=== PATIENT | female | born 1955 | race Hispanic/Latino ===

== ENCOUNTER 2016-06-20 21:22 | Inpatient (IN) | payer MEDICAID ==
[2016-06-20] MEDS ORDERED: DULCOLAX PR PRN (22:32)
[2016-06-20] MEDS: NORCO 10/325 PO PRN (23:35)
[2016-06-21] MEDS: NORCO 10/325 PO PRN ×2 (04:55→09:23)
[2016-06-21 05:47] LABS: Alanine Aminotransferase 10 units/L (7-56); Albumin 3.4 g/dL (3.9-5); Alkaline Phosphatase 128 units/L (35-129); Anion Gap 19 mmol/L; Bilirubin,Total 0.5 mg/dL (0.1-1.2); Blood Urea Nitrogen 16 mg/dL (7-17); Calcium 8.9 mg/dL (8.4-10.2); Carbon Dioxide 25 mmol/L (22-30); Chloride 93.8 mmol/L (98-107); Glucose 99 mg/dL (65-100); Potassium 4.4 mmol/L (3.6-5.0); Sodium 133 mmol/L (137-145); Total Protein 6.9 g/dL (6.3-8.2)
[2016-06-21 05:55] LABS: Basophils % (Auto) 0.7 % (0.0-1.8); Eosinophils % (Auto) 4.7 % (0.0-4.3); Hematocrit 25.6 % (30.3-42.9); Hemoglobin 8.6 gm/dl (10.1-14.3); Mean Corpuscular HGB Conc 34 % (30-34); Mean Corpuscular Hemoglobin 34 pg (28-32); Mean Corpuscular Volume 100 fl (79-97); Platelet Count 196 K/mm3 (140-440); Red Blood Count 2.56 M/mm3 (3.65-5.03); Red Cell Distribution Width 13.6 % (13.2-15.2); White Blood Count 5.1 K/mm3 (4.5-11.0)
[2016-06-21] MEDS: VITAMIN D3 PO SCH (09:16)
[2016-06-21] MEDS: RisperDAL PO SCH (09:17)
[2016-06-21] MEDS: HABITROL TD SCH ×2 (09:17→10:39)
[2016-06-21] MEDS: CYMBALTA PO SCH (09:17)
[2016-06-21] MEDS: LOVENOX SUB-Q SCH (09:18)
[2016-06-21] MEDS: BABY ASPIRIN PO SCH (10:40)
--- NOTE | 2016-06-21 12:12 | History and Physical Report ---
History of Present Illness Date: 06/21/16 Referring Facility: [facility] Date of admission: 06/20/16 21:22 Chief Complaint: right femoral neck fracture History of present illness: POST ADMISSION PHYSICIAN EVALUATION ONSET DATE: 06/10/2016 IMPAIRMENT GROUP CODE: 08.11 ETIOLOGIC DIAGNOSIS: right femoral fracture STATUS CHANGES SINCE PREADMISSION SCREENING: PAS has been reviewed. In comparison, pt with increase lethargy this afternoon. Pt with home meds in room and initially refused to allow for meds to be taken to pharmacy. Pt later reported having additional medications in her pocket and refused to give to myself or staff. Unclear what medications she may have; pt refuses to state what medications these are. She was alert and able to participate with therapies earlier this morning, however, very drowsy when seen by me. Therefore , Bradford discontinued to prevent possible respiratory distress; urine drug screen ordered. Roommate and sister to be notified. Pt noted to have functional deficits that warrant ongoing IRU admission, however, pt will be required to adhere to policies of no outside and unprescribed medications during admission. PREVIOUS FUNCTIONAL STATUS: Independent with ADLs, gait, transfers CURRENT FUNCTIONAL STATUS: S/U to maxA for ADLs; modA for transfers; ambulated 22 feet with HW HPI 60 y.o. female who presented to [facility] ED following a fall; noted to have a right intertrochanteric femur fracture, distal humerus fracture with displacement/dislocation of fracture fragments; also with acute on chronic renal failure and hypokalemia on admission. Course complicated by acute blood loss anemia requiring transfusion. Pt is s/p ORIF on 06/13/16 to [facility]; s/p IM rodding to RLE on 06/12/2016. Pt is now admitted for aggressive therapies and ongoing medical management. Past History Past Medical History: anemia (macrocytic; anemia of chronic disease), CAD ( angina), COPD, heart failure, hypertension, renal failure, other (asthma, schizophrenia) Past Surgical History: cholecystectomy, hernia repair, Other (tubal ligation; lumbar surgery) Social history: smoking, other (lives with roommate) Family history: no significant family history Medications and Allergies Allergies Allergy/AdvReac Type Severity Reaction Status Date / Time cephalexin monohydrate Allergy Rash Verified 06/12/15 02:43 [From Keflex] codeine Allergy Rash Verified 06/12/15 02:43 ibuprofen Allergy Rash Verified 06/12/15 02:43 ketorolac tromethamine Allergy Hives Verified 06/21/16 03:00 [From Toradol] Penicillins Allergy Rash Verified 06/12/15 02:43 Sulfa (Sulfonamide Allergy Rash Verified 06/12/15 02:43 Antibiotics) tramadol Allergy Rash Verified 06/12/15 02:43 tramadol HCl [From Ultram] Allergy Rash Verified 06/12/15 02:43 Home Medications Medication Instructions Recorded Confirmed Last Taken Type HYDROcodone/APAP 5-325 [[place] 1 each PO Q6HR PRN #15 tablet 02/15/14 Unknown Rx 5/325] Azithromycin [Zithromax Z-TANVI] 250 mg PO DAILY #6 tab 06/12/15 Unknown Rx traMADol [Ultram 50 MG tab] 50 mg PO TID #15 tablet 06/12/15 Unknown Rx Aspirin [Aspirin BABY CHEW TAB] 81 mg PO QDAY 06/21/16 06/21/16 06/12/16 08:55 History 81mg AtorvaSTATin [Lipitor] 80 mg PO QHS 06/21/16 06/21/16 06/19/16 21:24 History 80mg Cholecalciferol Vit D3 [Vitamin D3] 5,000 unit PO QDAY 06/21/16 06/21/16 08:37 History 5,000units Duloxetine HCl [DULoxetine] 60 mg PO DAILY 06/21/16 06/21/16 06/19/16 21:24 History 60mg HYDROcodone/APAP 10-325 [[place] 1 each PO Q4HR PRN 06/21/16 06/21/16 06/20/16 13: 19 History 10/325] 1 tablet Lisinopril [Zestril TAB] 2.5 mg PO HS 06/21/16 06/21/16 06/19/16 21:24 History Nicotine [Habitrol] 21 mg TD DAILY 06/21/16 06/21/16 06/14/16 15:42 History 1 patch Polyethylene Glycol 3350 [Purelax] 17 gm PO DAILY 06/21/16 06/21/16 Unknown History risperiDONE [RisperiDONE] 3 mg PO QDAY 06/21/16 06/21/16 06/11/16 09:28 History 1mg Active Meds: Active Medications Acetaminophen (Tylenol) 650 mg PO Q4H PRN PRN Reason: Pain MILD(1-3)/Fever >100.5/VALDEZ Aspirin (Baby Aspirin) 81 mg PO QDAY [facility] Last Admin: 06/21/16 10:40 Dose: Not Given Atorvastatin Calcium (Lipitor) 80 mg PO QHS [facility] Bisacodyl (Dulcolax) 10 mg [place] QDAY PRN PRN Reason: Constipation unrelieved by MOM Cholecalciferol (Vitamin D3) 5,000 unit PO QDAY [facility] Last Admin: 06/21/16 09:16 Dose: 5,000 unit Duloxetine HCl (Cymbalta) 60 mg PO QDAY [facility] Last Admin: 06/21/16 09:17 Dose: 60 mg Enoxaparin Sodium (Lovenox) 40 mg SUB-Q QDAY [facility] Last Admin: 06/21/16 09:18 Dose: 40 mg Lisinopril (Zestril) 2.5 mg PO QPM [facility] Nicotine (Habitrol) 21 mg TD QDAY [facility] Last Admin: 06/21/16 10:39 Dose: Not Given Risperidone (Risperdal) 3 mg PO QDAY [facility] Last Admin: 06/21/16 09:17 Dose: 3 mg Review of Systems ROS unobtainable: due to mental status (lethargic and refused to answer most questions) Constitutional: lethargy Respiratory: no cough Gastrointestinal: no nausea, no vomiting Musculoskeletal: gait dysfunction, other (pain at right arm and hip) Exam - Constitutional Vitals: Vital Signs - 12hr 06/21/16 06/21/16 06/21/16 00:35 05:55 09:23 Respiratory 18 18 20 Rate - EENT ENT: hearing intact - Neck Neck: supple, normal ROM - Respiratory Respiratory effort: normal Respiratory: bilateral: CTA - Cardiovascular Rhythm: regular Heart Sounds: Present: S1 & S2 - Extremities Extremity abnormal: edema (right hip), other (chalo in place to right lateral hip; no drainage; sling and splint to RUE) - Gastrointestinal General gastrointestinal: Present: soft, non-tender, non-distended, normal bowel sounds - Musculoskeletal Musculoskeletal: right sided weakness (RUE ROM deferred; intact ankle DF/PF) - Neurologic Neurologic: other (sensation grossly intact) - Psychiatric Psychiatric: other (lethargic, however, opens eyes intermittently to name) - Allied health notes FIMS assesment as documented by PT/OT/ST: Social interaction/Memory/Problem solving Social Interaction FIM Score 6. Modified [place] Memory FIM Score 6. Modified [place] Problem Solving FIM Score 6. Modified [place] Transfers Mode of Locomotion: Wheelchair Bed/Chair/Wheelchair Transfers 3. Moderate Assistance FIM Score Locomotion- Stairs Stairs FIM Score 0. Activity does not occr Locomotion- walk/wheelchair Most Frequent Mode of Wheelchair Locomotion: Ambulation Distance 22 Walking FIM Score 1. Total Assistance Wheelchair Propulsion Distance 70 Wheelchair FIM Score 2. Maximal Assistance - Labs CBC & Chem 7: 06/21/16 04:39 06/21/16 04:39 Labs: Laboratory Results - last 72 hr 06/21/16 06/21/16 04:39 04:39 WBC 5.1 RBC 2.56 L Hgb 8.6 L Hct 25.6 L MCV 100 H MCH 34 H MCHC 34 RDW 13.6 Plt Count 196 Lymph % (Auto) 23.3 Kay % (Auto) 7.5 H Eos % (Auto) 4.7 H Baso % (Auto) 0.7 Lymph # 1.2 Kay # 0.4 Eos # 0.2 Baso # 0.0 Seg Neutrophils % 63.8 Seg Neutrophils # 3.3 Sodium 133 L Potassium 4.4 Chloride 93.8 L Carbon Dioxide 25 Anion Gap 19 BUN 16 Creatinine 0.8 Estimated GFR > 60 BUN/Creatinine Ratio 20.00 Glucose 99 Calcium 8.9 Total Bilirubin 0.5 AST 16 ALT 10 Alkaline Phosphatase 128 Total Protein 6.9 Albumin 3.4 L Albumin/Globulin Ratio 1.0 Assessment and Plan Assessment and plan: 60 y.o. female s/p fall with resultant right intertrochanteric fracture, s/p IM rodding; right humeral fracture, s/p ORIF; gait dysfunction; anemia; resolved acute on chronic renal failure. The patient is medically stable, however, requires ongoing medical management. Pt is appropriate for inpatient rehabilitation admission and is thought to be able to tolerate at least 3 hours of therapy a day, 5 days a week including 1 hour of physical therapy, 1 hour of occupational therapy, and 1 hour of speech therapy. Patient is able to understand and follow basic directions and has attainable rehab goals. Potential barriers/complications include falls, DVT/PE, nonunion, infection, respiratory distress, uncontrolled pain, syncope, hypotension. Plan 1. Rehabilitation- Pt will undergo multidisciplinary/integrative rehab PT/OT, Nursing. Areas to be addressed include, but are not limited to PT for mobility , strengthening, transfer training, ROM, endurance, stairs, balance; OT for ADLs , household tasks, adaptive equipment; Nursing for carryover of therapies, pain control, education, skin integrity, medication management, bowel/bladder management; Nutrition as needed; client services representative for discharge planning and equipment needs. Potential interventions include appropriate assistive device or adaptive equipment. Expected overall level of functional improvement by discharge is [place] to supervision with transfers, ADLs, gait. Pt will tentatively be discharged home with outpatient PT/OT. Estimated length of stay is 7-10 days. 2. s/p right intertrochanteric fracture, right humeral fracture- NWB to RUE with sling at all times; WBAT to RLE. will d/c chalo POD #10; pain control reduced to tylenol only as pt noted to have been taking home medications this AM ; record also indicates that pt was doing this at outside facility; reportedly Soma was the medication, however, pt refused to prior to me on today. Medications obtained by nurse and are in the pharmacy 3. anemia- chronic disease, acute blood loss; s/p transfusion; monitor 4. HTN- low BP overnight; improved this AM; follow closely, avoid hypotension 5. CAD- ASA 6. severe vitamin D deficiency- continue Vit D3 7. tobacco abuse- nicotine patch; notified by nurse that pt refused this AM; will d/c 8. DVT px- continue lovenox until 06/27 per Ortho - Patient Problems (1) Closed intertrochanteric fracture of right femur Current Visit: Yes Status: Acute Qualifiers: Encounter type: initial encounter Qualified Code(s): S72.141A - Displaced intertrochanteric fracture of right femur, initial encounter for closed fracture (2) Closed fracture of right distal humerus Current Visit: Yes Status: Acute Qualifiers: Encounter type: initial encounter Fracture morphology: other fracture Fracture alignment: displaced Qualified Code(s): S42.491A - Other displaced fracture of lower end of right humerus, initial encounter for closed fracture (3) Hypertension Current Visit: Yes Status: Acute Qualifiers: Hypertension type: essential hypertension Qualified Code(s): I10 - Essential (primary) hypertension (4) CAD (coronary artery disease) Current Visit: Yes Status: Acute Qualifiers: Coronary Disease-Associated Artery/Lesion type: [place] artery [place] vs. transplanted heart: [place] heart Associated angina: with stable angina Qualified Code(s): I25.118 - Atherosclerotic heart disease of [place] coronary artery with other forms of angina pectoris (5) Vitamin D deficiency Current Visit: Yes Status: Acute (6) Tobacco abuse Current Visit: Yes Status: Acute (7) Acute blood loss anemia Current Visit: Yes Status: Acute
[2016-06-21] MEDS: TYLENOL PO PRN ×2 (18:13→21:57)
[2016-06-21] MEDS: ZESTRIL PO SCH (18:14)
--- NOTE | 2016-06-21 22:01 | Consultation ---
History of Present Illness - Reason for Consult Consult date: 06/21/16 medical management of patient with fractured right hip and humerus, - History of Present Illness Patient is a 60-year-old lady who has a history of COPD, chronic pain and have been on multiple pain medications in the past, tobacco use disorder, who stated on a piece of black ice and fell sustaining a fracture of the right hip and right hemiparesis. Was seen by an orthopedic doctor who did an open reduction internal fixation of the humerus on 06/12/16 and of the right hip on 06/13/16. Was transferred over to acute rehabilitation for further management. Patient has intermittent episodes of drowsiness while she has been taking some medications that she brought from home against policy of the hospital. Past History Past Medical History: anemia (macrocytic; anemia of chronic disease), CAD ( angina), COPD, heart failure, hypertension, renal failure, other (asthma, schizophrenia) Past Surgical History: cholecystectomy, hernia repair, Other (tubal ligation; lumbar surgery) Social history: smoking, other (lives with roommate) Family history: no significant family history Medications and Allergies Allergies Allergy/AdvReac Type Severity Reaction Status Date / Time cephalexin monohydrate Allergy Rash Verified 06/12/15 02:43 [From Keflex] codeine Allergy Rash Verified 06/12/15 02:43 ibuprofen Allergy Rash Verified 06/12/15 02:43 ketorolac tromethamine Allergy Hives Verified 06/21/16 03:00 [From Toradol] Penicillins Allergy Rash Verified 06/12/15 02:43 Sulfa (Sulfonamide Allergy Rash Verified 06/12/15 02:43 Antibiotics) tramadol Allergy Rash Verified 06/12/15 02:43 tramadol HCl [From Ultram] Allergy Rash Verified 06/12/15 02:43 Home Medications Medication Instructions Recorded Confirmed Last Taken Type HYDROcodone/APAP 5-325 [[place] 1 each PO Q6HR PRN #15 tablet 02/15/14 Unknown Rx 5/325] Azithromycin [Zithromax Z-TANVI] 250 mg PO DAILY #6 tab 06/12/15 Unknown Rx traMADol [Ultram 50 MG tab] 50 mg PO TID #15 tablet 06/12/15 Unknown Rx Aspirin [Aspirin BABY CHEW TAB] 81 mg PO QDAY 06/21/16 06/21/16 06/12/16 08:55 History 81mg AtorvaSTATin [Lipitor] 80 mg PO QHS 06/21/16 06/21/16 06/19/16 21:24 History 80mg Cholecalciferol Vit D3 [Vitamin D3] 5,000 unit PO QDAY 06/21/16 06/21/16 08:37 History 5,000units Duloxetine HCl [DULoxetine] 60 mg PO DAILY 06/21/16 06/21/16 06/19/16 21:24 History 60mg HYDROcodone/APAP 10-325 [[place] 1 each PO Q4HR PRN 06/21/16 06/21/16 06/20/16 13: 19 History 10/325] 1 tablet Lisinopril [Zestril TAB] 2.5 mg PO HS 06/21/16 06/21/16 06/19/16 21:24 History Nicotine [Habitrol] 21 mg TD DAILY 06/21/16 06/21/16 06/14/16 15:42 History 1 patch Polyethylene Glycol 3350 [Purelax] 17 gm PO DAILY 06/21/16 06/21/16 Unknown History risperiDONE [RisperiDONE] 3 mg PO QDAY 06/21/16 06/21/16 06/11/16 09:28 History 1mg Active Meds: Active Medications Acetaminophen (Tylenol) 650 mg PO Q4H PRN PRN Reason: Pain MILD(1-3)/Fever >100.5/VALDEZ Last Admin: 06/21/16 18:13 Dose: 650 mg Aspirin (Baby Aspirin) 81 mg PO QDAY [facility] Last Admin: 06/21/16 10:40 Dose: Not Given Atorvastatin Calcium (Lipitor) 80 mg PO QHS [facility] Bisacodyl (Dulcolax) 10 mg [place] QDAY PRN PRN Reason: Constipation unrelieved by MOM Cholecalciferol (Vitamin D3) 5,000 unit PO QDAY [facility] Last Admin: 06/21/16 09:16 Dose: 5,000 unit Duloxetine HCl (Cymbalta) 60 mg PO QDAY [facility] Last Admin: 06/21/16 09:17 Dose: 60 mg Enoxaparin Sodium (Lovenox) 40 mg SUB-Q QDAY [facility] Last Admin: 06/21/16 09:18 Dose: 40 mg Lisinopril (Zestril) 2.5 mg PO QPM [facility] Last Admin: 06/21/16 18:14 Dose: Not Given Nicotine (Habitrol) 21 mg TD QDAY [facility] Last Admin: 06/21/16 10:39 Dose: Not Given Risperidone (Risperdal) 3 mg PO QDAY [facility] Last Admin: 06/21/16 09:17 Dose: 3 mg Review of Systems ROS unobtainable: due to endotracheal tube Constitutional: no anorexia, no fatigue Ears, nose, mouth and throat: no ear pain, no ear discharge, no tinnitis, no decreased hearing Cardiovascular: dyspnea on exertion, no chest pain, no orthopnea, no palpitations Respiratory: wheezing, no cough with sputum, no excessive sputum, no congestion Gastrointestinal: no abdominal pain, no nausea, no vomiting Genitourinary Female: no dysmenorrhea, no pelvic pain, no urinary frequency, no urgency Rectal: no pain, no incontinence Musculoskeletal: frequent falls, fractures, no neck stiffness Integumentary: no bullae, no lesions, no darkening of skin, no depigmentation, no acne Neurological: no vertigo, no headaches, no convulsions Psychiatric: paranoia, no memory loss, no change in sleep habits, no sleep disturbances Endocrine: no cold intolerance, no heat intolerance, no polyphagia, no deepening of the voice Hematologic/Lymphatic: no easy bruising, no easy bleeding Allergic/Immunologic: no urticaria Exam - Constitutional Vitals: Temp Pulse Resp BP Pulse Ox 97.7 F 86 20 112/68 96 06/21/16 08:00 06/21/16 18:14 06/21/16 10:00 06/21/16 18:14 06/21/16 10:00 General appearance: Present: no acute distress, well-nourished - EENT Eyes: Present: PERRL ENT: hearing intact, clear oral mucosa - Neck Neck: Present: supple, normal ROM - Respiratory Respiratory effort: normal Respiratory: bilateral: CTA - Cardiovascular Heart Sounds: Present: S1 & S2. Absent: rub, click - Extremities Extremities: pulses symmetrical, No edema Peripheral Pulses: within normal limits - Abdominal General gastrointestinal: Present: soft, non-tender, non-distended, normal bowel sounds Female genitourinary: Present: normal - Integumentary Integumentary: Present: clear, warm, dry - Musculoskeletal Musculoskeletal: strength equal bilaterally, other (noted limited range of motion right hip and right arm.) - Psychiatric Psychiatric: appropriate mood/affect, intact judgment & insight - Neurologic Neurologic: CNII-XII intact, moves all extremities Results - Labs CBC & Chem 7: 06/21/16 04:39 06/21/16 04:39 Labs: Abnormal lab results 06/21/16 06/21/16 Range/Units 04:39 04:39 RBC 2.56 L (3.65-5.03) M/mm3 Hgb 8.6 L (10.1-14.3) gm/dl Hct 25.6 L (30.3-42.9) % MCV 100 H (79-97) fl MCH 34 H (28-32) pg [place] % (Auto) 7.5 H (0.0-7.3) % Eos % (Auto) 4.7 H (0.0-4.3) % Sodium 133 L (137-145) mmol/L Chloride 93.8 L (98-107) mmol/L Albumin 3.4 L (3.9-5) g/dL Assessment and Plan - Patient Problems (1) CAD (coronary artery disease) Diagnosis Date: 06/21/16 Current Visit: Yes Status: Acute Qualifiers: Coronary Disease-Associated Artery/Lesion type: [place] artery [place] vs. transplanted heart: [place] heart Associated angina: with stable angina Qualified Code(s): I25.118 - Atherosclerotic heart disease of [place] coronary artery with other forms of angina pectoris Plan to address problem: Aspirin, Plavix, metoprolol, and lisinopril (2) Closed fracture of right distal humerus Diagnosis Date: 06/21/16 Current Visit: Yes Status: Acute Qualifiers: Encounter type: initial encounter Fracture morphology: other fracture Fracture alignment: displaced Qualified Code(s): S42.491A - Other displaced fracture of lower end of right humerus, initial encounter for closed fracture Plan to address problem: Management id per recommendation of orthopedic surgeon (3) Closed intertrochanteric fracture of right femur Diagnosis Date: 06/21/16 Current Visit: Yes Status: Acute Qualifiers: Encounter type: initial encounter Qualified Code(s): S72.141A - Displaced intertrochanteric fracture of right femur, initial encounter for closed fracture (4) Hypertension Diagnosis Date: 06/21/16 Current Visit: Yes Status: Acute Qualifiers: Hypertension type: essential hypertension Plan to address problem: Controlled (5) Tobacco abuse Diagnosis Date: 06/21/16 Current Visit: Yes Status: Acute Plan to address problem: Counseling on tobacco cessation was down for 10 minutes
[2016-06-22] MEDS: TYLENOL PO PRN ×3 (02:03→10:41)
[2016-06-22 03:13] LABS: Urine Drugs of Abuse Note Disclamer
[2016-06-22] MEDS: LOVENOX SUB-Q SCH (08:44)
[2016-06-22] MEDS: VITAMIN D3 PO SCH (08:44)
[2016-06-22] MEDS: CYMBALTA PO SCH (08:44)
[2016-06-22] MEDS: RisperDAL PO SCH (08:45)
[2016-06-22] MEDS: BABY ASPIRIN PO SCH (08:45)
[2016-06-22] MEDS: HABITROL TD SCH (08:45)
--- NOTE | 2016-06-22 09:34 | IRU Plan of Care ---
Interdisciplinary Plan of Care - IP IRU INTERDISCIPLINARY PLAN: [facility] Inpatient Rehab Unit Plan of Care IRU Interdisciplinary Care Plan Start: 06/20/16 22: 02 Freq: Admission then PRN Status: Active Document 06/22/16 08:36 DB (Rec: 06/21/16 16:45 DB [id number]) Interdisciplinary Problem List Interdisciplinary Problem List Interdisciplinary Problem List Impaired Bathing/Grooming Query Text:Answers will Trigger Problems Impaired Dressing and Outcomes on Worklist. Impaired Mobility Impaired Transfers Impaired Toileting Pain Management Knowledge Deficits Impaired Skin/Tissue Integrity Impaired Home Management Impaired Safety Medications Education IRU Interdisciplinary Care Plan Therapy Services Therapy Services Will Include: Physical Therapy Query Text:Patient will be seen for a Occupational Therapy minimum of 3 hours of daily therapy 5 out of 7 days a week. Therapy intensity may be adjusted within a 7 consecutive day period to effectively serve the individual needs of the patient. Treatment Frequency/Intensity/Duration Treatment Frequency 5 days per week Treatment Intensity 1.5 hours per discipline (PT/OT ) daily Treatment Duration 10-14 days Problem Area: Eating/Swallowing Eating/Swallowing Outcomes Eating/Swallowing Interventions Problem Area: Bathing/Grooming Bathing/Grooming Outcomes Improve [place] w/ Bathing Bathing/Grooming Interventions ADL Training Use of Assistive Devices Therapeutic Exercise Therapeutic Activity Balance Work Activity Tolerance Work Patient/Caregiver Education Problem Area: Dressing Dressing Outcomes Improve [place] w/ UB Dressing Improve [place] w/ LB Dressing Dressing Interventions ADL Training Use of Assistive Devices Therapeutic Exercise Balance Work Patient/Caregiver Education Problem Area: Mobility Mobility Outcomes Improve [place] w/ Bed Mobility Improve [place] w/ Ambulation Improve [place] w/ Stairs /Curb Improve [place] w/ Wheelchair Mobility Interventions Therapeutic Exercise Neuromuscular Re-Ed. Activity Tolerance Work Modalities Use of Assistive Devices Patient/Caregiver Education Bed Mobility Work Gait Training W/C Mobility Work Problem Area: Transfers Transfers Outcomes Improve [place] w/ Bed Transfers Improve [place] w/ Toilet Transfers Improve [place] w/ Tub/ Shower Transfers Improve [place] w/ Car Transfers Transfers Interventions Transfer Training Therapeutic Exercise Neuromuscular Re-Education Activity Tolerance Work Modalities Use of Assistive Devices Patient/Caregiver Education Problem Area: Bowel/Bladder Managment Bowel/Bladder Outcomes Continent of Bladder Remain free of UTI Bowel/Bladder Interventions Bladder Training Program Medication Education Patient/Caregiver Education Problem Area: Toileting Toileting Outcomes Improve [place] w/ Toileting Toileting Interventions ADL Training Balance Work Use of Assistive Devices Patient/Caregiver Education Problem Area: Nutrition Nutrition Outcomes Understand and Comply w/ Diet Improve/Maintain Oral Intake Nutrition Interventions Nutritional Counseling Monitor Nutrient Intake Patient/Caregiver Education Problem Area: Comprehension Comprehension Outcomes Comprehension Interventions Problem Area: Expression Expression Outcomes Expression Interventions Problem Area: Problem Solving Problem Solving Outcomes Problem Solving Interventions Problem Area: Memory Memory Outcomes Memory Interventions Problem Area: Pain Management Pain Management Outcomes Demonstrate/Verbalize Pain Strategies Pain Management Interventions Medication Management Stress Management Use of Devices/Modalities ( TENS, hot pack, cold pack, etc .) Positioning/Turning Patient/Caregiver Education Problem Area: Knowledge Deficits Knowledge Deficits Outcomes Verbalize Precautions Knowledge Deficits Interventions Disease/Injury/Sx. Intervention Education Medication Use Education Body Mechanics/Joint Protection Education Disease Management Education Health Maintainence Education Safety Education Energy Conservation Education Problem Area: Skin/Tissue Integrity Skin/Tissue Integrity Outcomes Exhibit Healing of Wound/ Incision Demonstrate Understanding of Pressure Relief Skin/Tissue Integrity Interventions Skin/Wound Care Pressure Relief Instruction Dressing Change Education Positioning/Turning Problem Area: Social Interaction Social Interaction Outcomes Social Interaction Interventions Problem Area: Adjustment to Disability Adjustment to Disability Outcomes Adjustment to Disability Interventions Problem Area: Discharge Concerns Discharge Concerns Outcomes Discharge Home w/ Necessary Equipment Have Home Health/Outpatient Services Discharge Concerns Interventions Discharge Planning Family/Caregiver Conference Family/Caregiver Training Problem Area: Community Reintegration Community Reintegration Outcomes Demonstrate Understanding of Community Resources Community Reintegration Interventions Provide Community Resources Problem Area: Home Management Home Management Outcomes Improve [place] w/ Home Management Home Management Interventions Meal Preparation Clothing Care Patient/Caregiver Education Problem Area: Safety Safety Outcomes Provide Safe Environment Perform Selfcare Safely Demonstrate Good Safety w/ Transfers/Mobility Safety Interventions Identify Fall Risk [place] Pt. to Environment Reduce Environmental Hazards Problem Area: Medication Education Medication Education Outcomes Patient/Caregiver will Verbalize Understanding of Medications Medication Education Interventions Explain Administration/Side Effects/Interactions Problem Area: Diabetes Education Diabetes Education Outcomes Diabetes Education Interventions Problem Area: Oxygenation Oxygenation Outcomes Oxygenation Interventions Problem Area: Cardiovascular Cardiovascular Outcomes Maintain or Improve Cardiovascular Status Cardiovascular Interventions Assess Vital Signs at least Every 4 hours Maintain Anticoagulants Within Appropriate Range Smoking Cessation Education Physician Only Medical Prognosis and Rehabilitation Patient demonstrates good Potential (Completed by Physician) rehab potential. Medical Prognosis: Good This plan of care has been developed based on the findings from the pre- admission assessment, post admission physician evaluation, information gathered from the assessments from all therapy disciplines and other pertinent clinicians. The plan of care has been reviewed and discussed in collaboration with the interdisciplinary team. The plan of care will be reviewed and updated at least weekly. 60 y.o. female s/p fall with resultant right intertrochanteric fracture, s/p IM rodding; right humeral fracture, s/p ORIF; gait dysfunction; acute on chronic anemia. The patient remains at risk for falls, DVT/PE, nonunion, infection, respiratory distress, uncontrolled pain, syncope, hypotension. Pt is much more cooperative on today; increased pain, however, participated well. Will adjust pain regimen, UDS negative. Continue to follow H/H, s/p transfusion during acute care course. Pt is refusing nicotine patch, will d/c. Pt continues with functional deficits; remains an appropriate candidate for IRU admission.
[2016-06-22] MEDS: NORCO 5/325 PO PRN ×2 (14:38→21:34)
--- NOTE | 2016-06-22 17:12 | Progress Note ---
Assessment and Plan 60 y.o. female s/p fall with resultant right intertrochanteric fracture; right humeral fracture - s/p right intertrochanteric fracture, right humeral fracture- NWB to RUE with sling at all times; WBAT to RLE; d/c chalo POD #10; will restart [place] at 5/ 325 Q6h, follow for lethargy - unsteady gait- continue gait training with PT;i improved gait distance with encouragement on today - anemia- chronic disease, acute blood loss; s/p transfusion in acute care prior to transfer; recheck on Saturday - HTN- stable - CAD- ASA - severe vitamin D deficiency- continue Vit D3 - DVT px- continue lovenox until 06/27 per Ortho - Patient Problems (1) Closed intertrochanteric fracture of right femur Diagnosis Date: 06/21/16 Current Visit: Yes Status: Acute Qualifiers: Encounter type: initial encounter Qualified Code(s): S72.141A - Displaced intertrochanteric fracture of right femur, initial encounter for closed fracture (2) Closed fracture of right distal humerus Diagnosis Date: 06/21/16 Current Visit: Yes Status: Acute Qualifiers: Encounter type: initial encounter Fracture morphology: other fracture Fracture alignment: displaced Qualified Code(s): S42.491A - Other displaced fracture of lower end of right humerus, initial encounter for closed fracture (3) Hypertension Diagnosis Date: 06/21/16 Current Visit: Yes Status: Acute Qualifiers: Hypertension type: essential hypertension (4) CAD (coronary artery disease) Diagnosis Date: 06/21/16 Current Visit: Yes Status: Acute Qualifiers: Coronary Disease-Associated Artery/Lesion type: [place] artery [place] vs. transplanted heart: [place] heart Associated angina: with stable angina Qualified Code(s): I25.118 - Atherosclerotic heart disease of [place] coronary artery with other forms of angina pectoris (5) Vitamin D deficiency Current Visit: Yes Status: Acute (6) Acute blood loss anemia Current Visit: Yes Status: Acute (7) Unsteady gait Current Visit: Yes Status: Acute Subjective Date of service: 06/22/16 Principal diagnosis: right intertrochanteric fracture Interval history: Pt seen in gym this AM, F/U IPR course, s/p right intertrochanteric fracture; right humeral fracture. Pt with increased pain overnight; much more alert and cooperative on today. Also complains of constipation Objective - Constitutional General appearance: Present: mild distress (pain ) - EENT Eyes: EOM intact ENT: hearing intact - Neck Neck: supple, normal ROM - Respiratory Respiratory effort: normal - Gastrointestinal General gastrointestinal: Present: soft, non-tender - Musculoskeletal Musculoskeletal: other (splint and sling to RUE) - Neurologic Neurologic: CNII-XII intact - Psychiatric Psychiatric: cooperative - Allied health notes Allied health notes reviewed: PT (Carol Ann for transfers and gait), OT (Carol Ann for ADLS, except s/u for grooming) - Labs CBC & Chem 7: 06/21/16 04:39 06/21/16 04:39
[2016-06-22] MEDS: ZESTRIL PO SCH (18:00)
[2016-06-22] MEDS: SENOKOT PO SCH (21:34)
[2016-06-22] MEDS: COLACE PO SCH (21:34)
--- NOTE | 2016-06-22 22:17 | Progress Note ---
Assessment and Plan - Patient Problems (1) CAD (coronary artery disease) Diagnosis Date: 06/21/16 Current Visit: Yes Status: Acute Qualifiers: Coronary Disease-Associated Artery/Lesion type: [place] artery [place] vs. transplanted heart: [place] heart Associated angina: with stable angina Qualified Code(s): I25.118 - Atherosclerotic heart disease of [place] coronary artery with other forms of angina pectoris Plan to address problem: No chest pain. continue with present Mx (2) Closed fracture of right distal humerus Diagnosis Date: 06/21/16 Current Visit: Yes Status: Acute Qualifiers: Encounter type: initial encounter Fracture morphology: other fracture Fracture alignment: displaced Qualified Code(s): S42.491A - Other displaced fracture of lower end of right humerus, initial encounter for closed fracture Plan to address problem: Continue with in pt rehab program per rehab MD Pain control adequate. Pt has hisory of pain med seeking behavior (3) Closed intertrochanteric fracture of right femur Diagnosis Date: 06/21/16 Current Visit: Yes Status: Acute Qualifiers: Encounter type: initial encounter Qualified Code(s): S72.141A - Displaced intertrochanteric fracture of right femur, initial encounter for closed fracture Plan to address problem: continue PT/OT (4) Hypertension Diagnosis Date: 06/21/16 Current Visit: Yes Status: Acute Qualifiers: Hypertension type: essential hypertension Plan to address problem: Controlled (5) Tobacco abuse Diagnosis Date: 06/21/16 Current Visit: Yes Status: Acute (6) Anemia Diagnosis Date: 06/21/16 Current Visit: Yes Status: Acute Plan to address problem: of chronic disease. Subjective Date of service: 06/22/16 Principal diagnosis: right intertrochanteric fracture Interval history: c/o pain right hip Objective - Constitutional Vitals: Vital Signs - 12hr 06/22/16 20:00 Temperature 99.1 F Pulse Rate [ 84 Left Brachial] Respiratory 18 Rate Blood Pressure 135/72 [Left Arm] O2 Sat by Pulse 100 Oximetry General appearance: Present: no acute distress - EENT Eyes: PERRL - Neck Neck: supple - Respiratory Respiratory effort: normal Respiratory: bilateral: CTA - Cardiovascular Rhythm: regular Extremities: no ischemia, pulses intact, pulses symmetrical - Gastrointestinal General gastrointestinal: Present: soft, non-tender, non-distended - Integumentary Integumentary: clear, warm - Labs CBC & Chem 7: 06/21/16 04:39 06/21/16 04:39
[2016-06-23] MEDS: NORCO 5/325 PO PRN ×4 (04:09→23:30)
[2016-06-23] MEDS: BABY ASPIRIN PO SCH (09:33)
[2016-06-23] MEDS: CYMBALTA PO SCH (09:33)
[2016-06-23] MEDS: RisperDAL PO SCH (09:33)
[2016-06-23] MEDS: VITAMIN D3 PO SCH (09:33)
[2016-06-23] MEDS: COLACE PO SCH ×2 (09:33→21:56)
[2016-06-23] MEDS: LOVENOX SUB-Q SCH (09:34)
--- NOTE | 2016-06-23 12:43 | Progress Note ---
Assessment and Plan 60 y.o. female s/p fall with resultant right intertrochanteric fracture; right humeral fracture - s/p right intertrochanteric fracture, right humeral fracture- continue weight bearing precautions; improved pain control - unsteady gait- fatigues quickly, however, improved gait distance - anemia- chronic disease, acute blood loss; s/p transfusion in acute care prior to transfer; recheck on Saturday - HTN- no further hypotension - CAD- ASA - severe vitamin D deficiency- continue Vit D3 - DVT px- continue lovenox until 06/27 per Ortho - Patient Problems (1) Closed intertrochanteric fracture of right femur Diagnosis Date: 06/21/16 Current Visit: Yes Status: Acute Qualifiers: Qualified Code(s): S72.141A - Displaced intertrochanteric fracture of right femur, initial encounter for closed fracture (2) Closed fracture of right distal humerus Diagnosis Date: 06/21/16 Current Visit: Yes Status: Acute Qualifiers: Qualified Code(s): S42.491A - Other displaced fracture of lower end of right humerus, initial encounter for closed fracture (3) Hypertension Diagnosis Date: 06/21/16 Current Visit: Yes Status: Acute (4) CAD (coronary artery disease) Diagnosis Date: 06/21/16 Current Visit: Yes Status: Acute Qualifiers: Qualified Code(s): I25.118 - Atherosclerotic heart disease of [place] coronary artery with other forms of angina pectoris (5) Vitamin D deficiency Current Visit: Yes Status: Acute (6) Acute blood loss anemia Current Visit: Yes Status: Acute (7) Unsteady gait Current Visit: Yes Status: Acute Subjective Date of service: 06/23/16 Principal diagnosis: right intertrochanteric fracture Interval history: Pt seen in room this AM, F/U IPR course, s/p right intertrochanteric fracture; right humeral fracture. Pt with improved pain control; +BM overnight Objective - Constitutional Vitals: Vital Signs - 12hr 06/23/16 06/23/16 08:00 10:17 Temperature 97.7 F Pulse Rate [ 90 Left Brachial] Respiratory 18 20 Rate Blood Pressure 118/66 [Left Arm] O2 Sat by Pulse 96 Oximetry General appearance: Present: no acute distress, other (asleep, however, easily aroused) - EENT Eyes: EOM intact ENT: hearing intact - Respiratory Respiratory effort: normal Respiratory: bilateral: CTA - Cardiovascular Rhythm: regular Heart Sounds: Present: S1 & S2 - Gastrointestinal General gastrointestinal: Present: soft, non-tender - Musculoskeletal Musculoskeletal: right sided weakness (sling in place to RUE) - Neurologic Neurologic: CNII-XII intact - Psychiatric Psychiatric: cooperative - Allied health notes Allied health notes reviewed: PT (Carol Ann for transfers; ambulated 75 feet ), OT ( Carol Ann for ADLs, except modA for LBD ) - Labs CBC & Chem 7: 06/21/16 04:39 06/21/16 04:39
--- NOTE | 2016-06-23 17:01 | Progress Note ---
Assessment and Plan - Patient Problems (1) CAD (coronary artery disease) Diagnosis Date: 06/21/16 Current Visit: Yes Status: Acute Qualifiers: Coronary Disease-Associated Artery/Lesion type: [place] artery [place] vs. transplanted heart: [place] heart Associated angina: with stable angina Qualified Code(s): I25.118 - Atherosclerotic heart disease of [place] coronary artery with other forms of angina pectoris Plan to address problem: No chest pain. continue with present Mx (2) Closed fracture of right distal humerus Diagnosis Date: 06/21/16 Current Visit: Yes Status: Acute Qualifiers: Encounter type: initial encounter Fracture morphology: other fracture Fracture alignment: displaced Qualified Code(s): S42.491A - Other displaced fracture of lower end of right humerus, initial encounter for closed fracture Plan to address problem: Continue with in pt rehab program per rehab MD Pain control adequate. Pt has hisory of pain med seeking behavior Continue with PT / OT (3) Closed intertrochanteric fracture of right femur Diagnosis Date: 06/21/16 Current Visit: Yes Status: Acute Qualifiers: Encounter type: initial encounter Qualified Code(s): S72.141A - Displaced intertrochanteric fracture of right femur, initial encounter for closed fracture Plan to address problem: s/p ORIF continue with PT/OT (4) Hypertension Diagnosis Date: 06/21/16 Current Visit: Yes Status: Acute Qualifiers: Hypertension type: essential hypertension Plan to address problem: Controlled (5) Tobacco abuse Diagnosis Date: 06/21/16 Current Visit: Yes Status: Acute (6) Anemia Diagnosis Date: 06/21/16 Current Visit: Yes Status: Acute Plan to address problem: of chronic disease. Subjective Date of service: 06/23/16 Principal diagnosis: right intertrochanteric fracture Interval history: c/o pain right hip. getting better Objective - Constitutional Vitals: Vital Signs - 12hr 06/23/16 06/23/16 06/23/16 08:00 10:17 11:17 Temperature 97.7 F Pulse Rate [ 90 Left Brachial] Respiratory 18 20 20 Rate Blood Pressure 118/66 [Left Arm] O2 Sat by Pulse 96 Oximetry 06/23/16 15:13 Temperature 98.3 F Pulse Rate [ 95 H Left Brachial] Respiratory 18 Rate Blood Pressure 141/75 [Left Arm] O2 Sat by Pulse 94 Oximetry General appearance: Present: no acute distress - EENT Eyes: PERRL - Neck Neck: supple - Respiratory Respiratory: bilateral: CTA - Cardiovascular Rhythm: regular Heart Sounds: Present: S1 & S2 Extremities: no ischemia, No edema - Gastrointestinal General gastrointestinal: Present: soft, non-tender, non-distended - Integumentary Integumentary: clear, warm, dry - Musculoskeletal Musculoskeletal: strength equal bilaterally - Neurologic Neurologic: CNII-XII intact - Psychiatric Psychiatric: appropriate mood/affect - Labs CBC & Chem 7: 06/21/16 04:39 06/21/16 04:39
[2016-06-23] MEDS: ZESTRIL PO SCH (17:25)
[2016-06-23] MEDS: SENOKOT PO SCH (21:55)
[2016-06-24] MEDS: NORCO 5/325 PO PRN ×4 (02:00→18:55)
[2016-06-24] MEDS: VITAMIN D3 PO SCH (08:57)
[2016-06-24] MEDS: CYMBALTA PO SCH (08:57)
[2016-06-24] MEDS: COLACE PO SCH ×2 (08:58→23:07)
[2016-06-24] MEDS: RisperDAL PO SCH (08:58)
[2016-06-24] MEDS: BABY ASPIRIN PO SCH (08:58)
[2016-06-24] MEDS: LOVENOX SUB-Q SCH (08:58)
--- NOTE | 2016-06-24 13:42 | Progress Note ---
Assessment and Plan 1. Right intertrochenteric Femoral fracture s/p ORIF 06/13/16: Continue with PT/ OT and pain control 2. Right distal Humeral Fracture s/p IM wyatt placement: Continue with pain control, PT/OT 3. CAD: Contiu with . Atorvastatin and metoprolol 4. Tobacco abuse: Tobacco cessation counselling done - Patient Problems (1) Closed intertrochanteric fracture of right femur Diagnosis Date: 06/21/16 Current Visit: Yes Status: Acute Qualifiers: Encounter type: initial encounter Qualified Code(s): S72.141A - Displaced intertrochanteric fracture of right femur, initial encounter for closed fracture Plan to address problem: s/p ORIF continue with PT/OT Continue with PT OT and pain control (2) CAD (coronary artery disease) Diagnosis Date: 06/21/16 Current Visit: Yes Status: Acute Qualifiers: Coronary Disease-Associated Artery/Lesion type: [place] artery [place] vs. transplanted heart: [place] heart Associated angina: with stable angina Qualified Code(s): I25.118 - Atherosclerotic heart disease of [place] coronary artery with other forms of angina pectoris Plan to address problem: No chest pain. Contue with ASA (3) Closed fracture of right distal humerus Diagnosis Date: 06/21/16 Current Visit: Yes Status: Acute Qualifiers: Encounter type: initial encounter Fracture morphology: other fracture Fracture alignment: displaced Qualified Code(s): S42.491A - Other displaced fracture of lower end of right humerus, initial encounter for closed fracture Plan to address problem: Continue with in pt rehab program per rehab MD Pain control adequate. Pt has hisory of pain med seeking behavior Continue with PT / OT (4) Hypertension Diagnosis Date: 06/21/16 Current Visit: Yes Status: Acute Qualifiers: Hypertension type: essential hypertension Plan to address problem: controlled (5) Tobacco abuse Diagnosis Date: 06/21/16 Current Visit: Yes Status: Acute (6) Anemia Diagnosis Date: 06/21/16 Current Visit: Yes Status: Acute Subjective Date of service: 06/24/16 Principal diagnosis: right intertrochanteric fracture Interval history: No new complaint Objective - Constitutional Vitals: Vital Signs - 12hr 06/24/16 06/24/16 06/24/16 06:26 07:26 08:00 Temperature 98.7 F Pulse Rate [ 91 H Left Brachial] Respiratory 18 2 L 20 Rate Respiratory 20 Rate [Right Hip ] Blood Pressure 115/68 [Left Arm] O2 Sat by Pulse 94 Oximetry 06/24/16 12:44 Temperature Pulse Rate [ Left Brachial] Respiratory 20 Rate Respiratory Rate [Right Hip ] Blood Pressure [Left Arm] O2 Sat by Pulse Oximetry General appearance: Present: no acute distress - EENT Eyes: PERRL, EOM intact ENT: hearing intact, clear oral mucosa Ears: bilateral: normal - Neck Neck: supple, normal ROM - Respiratory Respiratory effort: normal Respiratory: bilateral: CTA - Breasts Breasts: normal - Cardiovascular Rhythm: regular Heart Sounds: Present: S1 & S2. Absent: gallop, rub Extremities: pulses intact, No edema, normal color, Full ROM - Gastrointestinal General gastrointestinal: Present: soft, non-tender, non-distended, normal bowel sounds - Genitourinary Female genitourinary: normal - Integumentary Integumentary: clear, warm, dry - Musculoskeletal Musculoskeletal: other (right arm in sling with pain right hip from fracture) - Neurologic Neurologic: moves all extremities, other - Psychiatric Psychiatric: memory intact, appropriate mood/affect, intact judgment & insight - Labs CBC & Chem 7: 06/21/16 04:39 06/21/16 04:39
[2016-06-24] MEDS: ZESTRIL PO SCH (17:30)
[2016-06-24] MEDS: SENOKOT PO SCH ×2 (21:00→22:00)
[2016-06-25] MEDS: NORCO 5/325 PO PRN ×5 (02:00→21:40)
[2016-06-25 05:08] LABS: Hematocrit 29.9 % (30.3-42.9)
[2016-06-25] MEDS: RisperDAL PO SCH (08:45)
[2016-06-25] MEDS: LOVENOX SUB-Q SCH (08:45)
[2016-06-25] MEDS: CYMBALTA PO SCH (08:45)
[2016-06-25] MEDS: BABY ASPIRIN PO SCH (08:45)
[2016-06-25] MEDS: COLACE PO SCH ×2 (08:46→21:40)
[2016-06-25] MEDS: VITAMIN D3 PO SCH (09:07)
--- NOTE | 2016-06-25 12:18 | Progress Note ---
Assessment and Plan 60 y.o. female s/p fall with resultant right intertrochanteric fracture; right humeral fracture - s/p right intertrochanteric fracture, right humeral fracture- continue weight bearing precautions; adjust pain meds to q4h, monitor for somnolence - unsteady gait- improving independence; ambulating with an axillary crutch - anemia- chronic disease, acute blood loss; much improved - HTN- no further hypotension; not tolerating home dose of lisinopril; will d/c to prevent hypotension - CAD- ASA - severe vitamin D deficiency- continue Vit D3 - DVT px- continue lovenox until 06/27 per Ortho - Patient Problems (1) Closed intertrochanteric fracture of right femur Diagnosis Date: 06/21/16 Current Visit: Yes Status: Acute Qualifiers: Encounter type: initial encounter Qualified Code(s): S72.141A - Displaced intertrochanteric fracture of right femur, initial encounter for closed fracture (2) Closed fracture of right distal humerus Diagnosis Date: 06/21/16 Current Visit: Yes Status: Acute Qualifiers: Encounter type: initial encounter Fracture morphology: other fracture Fracture alignment: displaced Qualified Code(s): S42.491A - Other displaced fracture of lower end of right humerus, initial encounter for closed fracture (3) Hypertension Diagnosis Date: 06/21/16 Current Visit: Yes Status: Acute Qualifiers: Hypertension type: essential hypertension (4) CAD (coronary artery disease) Diagnosis Date: 06/21/16 Current Visit: Yes Status: Acute Qualifiers: Coronary Disease-Associated Artery/Lesion type: [place] artery [place] vs. transplanted heart: [place] heart Associated angina: with stable angina Qualified Code(s): I25.118 - Atherosclerotic heart disease of [place] coronary artery with other forms of angina pectoris (5) Vitamin D deficiency Current Visit: Yes Status: Acute (6) Acute blood loss anemia Current Visit: Yes Status: Acute (7) Unsteady gait Current Visit: Yes Status: Acute Subjective Date of service: 06/25/16 Principal diagnosis: right intertrochanteric fracture Interval history: Pt seen in room this AM, F/U IPR course, s/p right intertrochanteric fracture; right humeral fracture. Increased pain reported on today; requesting change from Q6h to Q4 hr for pain med Objective - Constitutional Vitals: Vital Signs - 12hr 06/25/16 06/25/16 06/25/16 02:00 03:00 07:00 Temperature Pulse Rate [ Left Brachial] Respiratory 20 20 22 Rate Blood Pressure [Left Arm] O2 Sat by Pulse Oximetry 06/25/16 08:00 Temperature 99.5 F Pulse Rate [ 88 Left Brachial] Respiratory 20 Rate Blood Pressure 136/74 [Left Arm] O2 Sat by Pulse 96 Oximetry General appearance: Present: no acute distress, other (in bed; easily arouses to name) - EENT Eyes: EOM intact ENT: hearing intact - Neck Neck: supple, normal ROM - Respiratory Respiratory effort: normal Extremity abnormal: other (sling/splint to RUE; chalo to right lateral thigh) - Gastrointestinal General gastrointestinal: Present: soft, non-tender - Musculoskeletal Musculoskeletal: right sided weakness - Neurologic Neurologic: CNII-XII intact - Psychiatric Psychiatric: cooperative (flat affect) - Allied health notes Allied health notes reviewed: PT (supervision for transfers; ambulating up 98 feet with an axillary crutch, CGA to SBA ), OT (s/u to [place] for ADLs) - Labs CBC & Chem 7: 06/25/16 04:16 06/21/16 04:39 Labs: Abnormal lab results 06/25/16 Range/Units 04:16 Hgb 10.0 L (10.1-14.3) gm/dl Hct 29.9 L (30.3-42.9) %
[2016-06-25] MEDS ORDERED: RESTORIL PO PRN (16:09)
--- NOTE | 2016-06-25 16:10 | Progress Note ---
Assessment and Plan 1. Right intertrochenteric Femoral fracture s/p ORIF on 06/13/16: Continue with PT/OT and pain control 2. Right distal Humeral Fracture s/p IM wyatt placement: Continue with pain control, PT/OT 3. CAD: Contiune with ASA. Atorvastatin and metoprolol 4. Tobacco abuse: Tobacco cessation counselling done 5. Insomnia: Commence patient on temazepam 30 mg 1 by mouth daily - Patient Problems (1) Closed intertrochanteric fracture of right femur Diagnosis Date: 06/21/16 Current Visit: Yes Status: Acute Qualifiers: Encounter type: initial encounter Qualified Code(s): S72.141A - Displaced intertrochanteric fracture of right femur, initial encounter for closed fracture (2) CAD (coronary artery disease) Diagnosis Date: 06/21/16 Current Visit: Yes Status: Acute Qualifiers: Coronary Disease-Associated Artery/Lesion type: [place] artery [place] vs. transplanted heart: [place] heart Associated angina: with stable angina Qualified Code(s): I25.118 - Atherosclerotic heart disease of [place] coronary artery with other forms of angina pectoris (3) Closed fracture of right distal humerus Diagnosis Date: 06/21/16 Current Visit: Yes Status: Acute Qualifiers: Encounter type: initial encounter Fracture morphology: other fracture Fracture alignment: displaced Qualified Code(s): S42.491A - Other displaced fracture of lower end of right humerus, initial encounter for closed fracture (4) Hypertension Diagnosis Date: 06/21/16 Current Visit: Yes Status: Acute Qualifiers: Hypertension type: essential hypertension (5) Tobacco abuse Diagnosis Date: 06/21/16 Current Visit: Yes Status: Acute (6) Anemia Diagnosis Date: 06/21/16 Current Visit: Yes Status: Acute Subjective Date of service: 06/25/16 Principal diagnosis: right intertrochanteric fracture Interval history: c/o insomnia. Pain in the right hip is well controlled Objective - Constitutional Vitals: Vital Signs - 12hr 06/25/16 06/25/16 06/25/16 07:00 08:00 12:27 Temperature 99.5 F Pulse Rate [ 88 Left Brachial] Respiratory 22 20 20 Rate Blood Pressure 136/74 [Left Arm] O2 Sat by Pulse 96 Oximetry General appearance: Present: no acute distress, well-nourished - EENT Eyes: PERRL, EOM intact ENT: hearing intact, clear oral mucosa Ears: bilateral: normal - Neck Neck: supple, normal ROM - Respiratory Respiratory effort: normal Respiratory: bilateral: CTA - Breasts Breasts: normal - Cardiovascular Rhythm: regular Heart Sounds: Present: S1 & S2. Absent: gallop, rub Extremities: pulses intact, No edema, normal color, Full ROM - Gastrointestinal General gastrointestinal: Present: soft, non-tender, non-distended, normal bowel sounds - Genitourinary Female genitourinary: normal - Integumentary Integumentary: clear, warm, dry - Musculoskeletal Musculoskeletal: strength equal bilaterally, other (Limited range of motion right hip and right shoulder) - Neurologic Neurologic: moves all extremities - Psychiatric Psychiatric: memory intact, appropriate mood/affect, intact judgment & insight - Labs CBC & Chem 7: 06/25/16 04:16 06/21/16 04:39 Labs: Abnormal lab results 06/25/16 Range/Units 04:16 Hgb 10.0 L (10.1-14.3) gm/dl Hct 29.9 L (30.3-42.9) %
[2016-06-25] MEDS: XANAX PO PRN (21:39)
[2016-06-25] MEDS: SENOKOT PO SCH (21:40)
[2016-06-26] MEDS: NORCO 5/325 PO PRN ×5 (02:39→22:29)
--- NOTE | 2016-06-26 08:36 | Progress Note ---
Assessment and Plan 1. Right intertrochenteric Femoral fracture s/p ORIF on 06/13/16: Continue with PT/OT and pain control 2. Right distal Humeral Fracture s/p IM wyatt placement: Continue with pain control, PT/OT 3. CAD: Contiune with ASA. Atorvastatin and metoprolol 4. Tobacco abuse: Tobacco cessation counselling done 5. Insomnia: Commence patient on temazepam 30 mg 1 by mouth daily 6. Anxiety d/o: commence Alprazolam - Patient Problems (1) Closed intertrochanteric fracture of right femur Diagnosis Date: 06/21/16 Current Visit: Yes Status: Acute Qualifiers: Encounter type: initial encounter Qualified Code(s): S72.141A - Displaced intertrochanteric fracture of right femur, initial encounter for closed fracture (2) CAD (coronary artery disease) Diagnosis Date: 06/21/16 Current Visit: Yes Status: Acute Qualifiers: Coronary Disease-Associated Artery/Lesion type: [place] artery [place] vs. transplanted heart: [place] heart Associated angina: with stable angina Qualified Code(s): I25.118 - Atherosclerotic heart disease of [place] coronary artery with other forms of angina pectoris (3) Closed fracture of right distal humerus Diagnosis Date: 06/21/16 Current Visit: Yes Status: Acute Qualifiers: Encounter type: initial encounter Fracture morphology: other fracture Fracture alignment: displaced Qualified Code(s): S42.491A - Other displaced fracture of lower end of right humerus, initial encounter for closed fracture (4) Hypertension Diagnosis Date: 06/21/16 Current Visit: Yes Status: Acute Qualifiers: Hypertension type: essential hypertension (5) Tobacco abuse Diagnosis Date: 06/21/16 Current Visit: Yes Status: Acute (6) Anemia Diagnosis Date: 06/21/16 Current Visit: Yes Status: Acute Subjective Date of service: 06/26/16 Principal diagnosis: right intertrochanteric fracture Interval history: c/o insomnia. Pain in the right hip is well controlled Objective - Constitutional Vitals: Vital Signs - 12hr 06/25/16 06/26/16 22:00 08:00 Temperature 98.1 F Pulse Rate [ 88 Left Brachial] Respiratory 18 22 Rate Blood Pressure 104/68 [Left Arm] O2 Sat by Pulse 95 Oximetry General appearance: Present: no acute distress, well-nourished - EENT Eyes: PERRL, EOM intact ENT: hearing intact, clear oral mucosa Ears: bilateral: normal - Neck Neck: supple, normal ROM - Respiratory Respiratory effort: normal Respiratory: bilateral: CTA - Breasts Breasts: normal - Cardiovascular Rhythm: regular Heart Sounds: Present: S1 & S2. Absent: gallop, rub Extremities: pulses intact, No edema, normal color, Full ROM - Gastrointestinal General gastrointestinal: Present: soft, non-tender, non-distended, normal bowel sounds - Genitourinary Female genitourinary: normal - Integumentary Integumentary: clear, warm, dry - Musculoskeletal Musculoskeletal: strength equal bilaterally, other (Limited ROM right hip) - Neurologic Neurologic: moves all extremities - Psychiatric Psychiatric: memory intact, appropriate mood/affect, intact judgment & insight - Labs CBC & Chem 7: 06/25/16 04:16 06/21/16 04:39
[2016-06-26] MEDS: LOVENOX SUB-Q SCH (09:37)
[2016-06-26] MEDS: VITAMIN D3 PO SCH (09:37)
[2016-06-26] MEDS: RisperDAL PO SCH (09:37)
[2016-06-26] MEDS: BABY ASPIRIN PO SCH (09:38)
[2016-06-26] MEDS: COLACE PO SCH ×2 (09:38→21:38)
[2016-06-26] MEDS: CYMBALTA PO SCH (09:38)
[2016-06-26] MEDS: XANAX PO PRN ×2 (11:08→22:29)
--- NOTE | 2016-06-26 13:55 | Progress Note ---
Assessment and Plan 60 y.o. female s/p fall with resultant right intertrochanteric fracture; right humeral fracture - s/p right intertrochanteric fracture POD #14, right humeral fracture POD #13- pain control stable; d/c chalo to RLE - unsteady gait- much improved gait distance with axillary crutch - HTN- history of HTN; currently holding home meds - CAD- ASA - severe vitamin D deficiency- continue Vit D3 - DVT px- continue lovenox until 06/27 per Ortho - team conference held on today- pt is Alondra for eating, grooming and bed mobility; SBA for bathing and dressing, CGA for toileting, toilet transfers, and sit-stand transfers; ambulating 340 feet x2 with axillary crutch at CGA to close supervision; supervision with stairs. Barriers- intermittent pain, anxiety. Pt has supervision at home; will d/c home on tomorrow. - Patient Problems (1) Closed intertrochanteric fracture of right femur Diagnosis Date: 06/21/16 Current Visit: Yes Status: Acute Qualifiers: Encounter type: initial encounter Qualified Code(s): S72.141A - Displaced intertrochanteric fracture of right femur, initial encounter for closed fracture (2) Closed fracture of right distal humerus Diagnosis Date: 06/21/16 Current Visit: Yes Status: Acute Qualifiers: Encounter type: initial encounter Fracture morphology: other fracture Fracture alignment: displaced Qualified Code(s): S42.491A - Other displaced fracture of lower end of right humerus, initial encounter for closed fracture (3) Hypertension Diagnosis Date: 06/21/16 Current Visit: Yes Status: Acute Qualifiers: Hypertension type: essential hypertension (4) CAD (coronary artery disease) Diagnosis Date: 06/21/16 Current Visit: Yes Status: Acute Qualifiers: Coronary Disease-Associated Artery/Lesion type: [place] artery [place] vs. transplanted heart: [place] heart Associated angina: with stable angina Qualified Code(s): I25.118 - Atherosclerotic heart disease of [place] coronary artery with other forms of angina pectoris (5) Vitamin D deficiency Current Visit: Yes Status: Acute (6) Unsteady gait Current Visit: Yes Status: Acute Subjective Date of service: 06/26/16 Principal diagnosis: right intertrochanteric fracture Interval history: Pt seen in PT gym this AM, F/U IPR course, s/p right intertrochanteric fracture ; right humeral fracture. Pain reports relief from pain meds, however, increase in pain with gait training. Pt encouraged to stay out of bed on today until after dinner Objective - Constitutional Vitals: Vital Signs - 12hr 06/26/16 08:00 Temperature 98.1 F Pulse Rate [ 88 Left Brachial] Respiratory 22 Rate Blood Pressure 104/68 [Left Arm] O2 Sat by Pulse 95 Oximetry General appearance: Present: no acute distress, other (lying on mat) - EENT Eyes: EOM intact ENT: hearing intact - Neck Neck: supple, normal ROM - Respiratory Respiratory effort: normal Respiratory: bilateral: CTA - Cardiovascular Rhythm: regular Heart Sounds: Present: S1 & S2 Extremities: No edema - Gastrointestinal General gastrointestinal: Present: soft, non-tender, non-distended, normal bowel sounds - Neurologic Neurologic: CNII-XII intact, other (finger extension/flexion in splint to RUE; good strength in RLE) - Psychiatric Psychiatric: appropriate mood/affect, cooperative - Labs CBC & Chem 7: 06/25/16 04:16 06/21/16 04:39
[2016-06-26] MEDS: SENOKOT PO SCH (21:37)
[2016-06-27] MEDS: NORCO 5/325 PO PRN ×3 (02:58→10:58)
[2016-06-27] MEDS: VITAMIN D3 PO SCH (08:20)
[2016-06-27] MEDS: LOVENOX SUB-Q SCH (08:20)
[2016-06-27] MEDS: BABY ASPIRIN PO SCH (08:21)
[2016-06-27] MEDS: CYMBALTA PO SCH (08:21)
[2016-06-27] MEDS: RisperDAL PO SCH (08:21)
[2016-06-27] MEDS: COLACE PO SCH (08:22)
[2016-06-27 08:53] VITALS: BP 101/58
--- NOTE | 2016-06-27 11:22 | Discharge Summary ---
Providers - Providers Date of Admission: 06/20/16 21:22 Date of discharge: 06/27/16 Attending physician: KARENA STALLWORTH 06/20/16 22:32 Occupational Therapy Evaluate and Treat [CONS] Routine Comment: Reason For Exam: s/p right hip fracture Physical Therapy Evaluation and Treat [CONS] Routine Comment: Reason For Exam: s/p right hip fracture 06/21/16 03:26 Consult to Wound/ET Nurse [CONS] Routine Reason For Exam: wound eval 06/21/16 09:33 Consult to Physician [CONS] Routine Consulting Provider: GRAY EMMANUEL Reason For Exam: PCP, medical mgmt Place consult to:: DR LIEN BURGESS Notified:: YES Phone number called:: [phone] Was contact made?: Yes If yes, spoke with:: ALBAN Comment:: [id number] Primary care physician: GARY EMMANUEL Hospitalization Reason for admission: right feoral neck fracture, right humeral fracture Condition: Stable Hospital course: 60 y.o. female who presented to [facility] ED following a fall; noted to have a right intertrochanteric femur fracture, distal humerus fracture with displacement/dislocation of fracture fragments; also with acute on chronic renal failure and hypokalemia on admission. Course complicated by acute blood loss anemia requiring transfusion. Pt is s/p ORIF on 06/13/16 to [facility]; s/p IM rodding to E on 06/12/2016. Pt was seen and evalauted by therapists and thought to be an appropriate candidate for IPR admission. Pt's IRU course was initially complicated by non-compliance with medications; however, following education, pt participated well. H/H noted to have improved during course; lisinopril discontinued due to low blood pressure. Functionally, pt has improved since admission. On initial evaluation, pt required s/u to maxA for ADLs; modA for transfers and ambulation, 22 feet with HW. Pt has now progressed to Alondra to CGA for ADLs; supervision for transfers; ambulating 340 feet x2 CGA-close supervision with axillary crutch. Abdulaziz have been removed; pt is stable for d/c home with supervision from roommate. >30 mins spent on discharge process; medication reconciliation; education Disposition: DISCHARGED TO HOME OR SELFCARE - Discharge Diagnoses (1) Closed intertrochanteric fracture of right femur Status: Acute Qualifiers: Encounter type: initial encounter Qualified Code(s): S72.141A - Displaced intertrochanteric fracture of right femur, initial encounter for closed fracture (2) Closed fracture of right distal humerus Status: Acute Qualifiers: Encounter type: initial encounter Fracture morphology: other fracture Fracture alignment: displaced Qualified Code(s): S42.491A - Other displaced fracture of lower end of right humerus, initial encounter for closed fracture (3) Hypertension Status: Acute Qualifiers: Hypertension type: essential hypertension (4) CAD (coronary artery disease) Status: Acute Qualifiers: Coronary Disease-Associated Artery/Lesion type: [place] artery [place] vs. transplanted heart: [place] heart Associated angina: with stable angina Qualified Code(s): I25.118 - Atherosclerotic heart disease of [place] coronary artery with other forms of angina pectoris (5) Vitamin D deficiency Status: Acute (6) Unsteady gait Status: Acute Core Measure Documentation - Palliative Care Palliative Care/ Comfort Measures: Not Applicable - Core Measures Any of the following diagnoses?: none Exam - Constitutional Vitals: Temp Pulse Resp BP Pulse Ox 97.7 F 78 18 101/58 98 06/27/16 07:10 06/27/16 07:10 06/27/16 07:10 06/27/16 07:10 06/27/16 07:10 General appearance: Present: no acute distress - EENT Eyes: Present: EOM intact ENT: hearing intact - Neck Neck: Present: supple, normal ROM - Respiratory Respiratory effort: normal - Extremities Extremities: No edema Extremity abnormal: other (right hip incision- open to air, no drainage, abdulaziz have been removed) - Abdominal General gastrointestinal: Present: non-tender, non-distended - Psychiatric Psychiatric: cooperative - Neurologic Neurologic: CNII-XII intact, moves all extremities (except RUE in sling) Plan Activity: no driving until cleared by PCP, fall precautions Weight Bearing Status: Non-Weight Bearing (RUE) Diet: low cholesterol, low salt Special Instructions: physical therapy, occupational therapy, other (outpt therapies- [facility]) Durable Medical Equipment Needed Upon Discharge: Crutches, Wheelchair, Bedside Commode, other (shower chair; [facility]) Additional Instructions: Ortho, Dr. Kal Newell in 1-2 weeks Follow up with: GARY EMMANUEL MD [Primary Care Provider] - 7 Days Prescriptions: AtorvaSTATin [Lipitor] 80 mg PO QHS #30 tablet Aspirin [Aspirin BABY CHEW TAB] 81 mg PO QDAY #30 tab.chew Duloxetine HCl [DULoxetine] 60 mg PO DAILY #30 capsule. risperiDONE [RisperiDONE] 3 mg PO QDAY #30 tablet Cholecalciferol Vit D3 [Vitamin D3] 5,000 unit PO QDAY #30 tablet
[2016-06-27] MEDS: XANAX PO PRN (13:12)
== END 2016-06-27 15:00 | disposition home or self-care (01) | DRG 536 ==
LOC: 3B 21:22
PROVIDERS: ADMIT Family Medicine; ATTEND Family Medicine
DX: S72.141A Displaced intertrochanteric fracture of right femur, initial encounter for closed fracture (principal); S42.491A Other displaced fracture of lower end of right humerus, initial encounter for closed fracture; D53.9 Nutritional anemia, unspecified; J44.9 Chronic obstructive pulmonary disease, unspecified; J45.909 Unspecified asthma, uncomplicated; F20.9 Schizophrenia, unspecified; I13.0 Hypertensive heart and chronic kidney disease with heart failure and stage 1 through stage 4 chronic kidney disease, or unspecified chronic kidney disease; N18.9 Chronic kidney disease, unspecified; E55.9 Vitamin D deficiency, unspecified; D62 Acute posthemorrhagic anemia; F17.200 Nicotine dependence, unspecified, uncomplicated; I50.9 Heart failure, unspecified; I25.118 Atherosclerotic heart disease of native coronary artery with other forms of angina pectoris; R26.81 Unsteadiness on feet; G47.00 Insomnia, unspecified; Z90.49 Acquired absence of other specified parts of digestive tract; Z98.51 Tubal ligation status; Z98.890 Other specified postprocedural states; Z88.8 Allergy status to other drugs, medicaments and biological substances; Z88.0 Allergy status to penicillin; Z88.2 Allergy status to sulfonamides; Z79.2 Long term (current) use of antibiotics; Z79.82 Long term (current) use of aspirin; Z79.1 Long term (current) use of non-steroidal anti-inflammatories (NSAID); Z79.899 Other long term (current) drug therapy; Z71.6 Tobacco abuse counseling
CPT/HCPCS: 36415; 80053; 80307; 85014; 85018; 85025; A9270-GY; J1650

== ENCOUNTER 2016-09-25 03:53 | Emergency (ER) | payer MEDICAID ==
[2016-09-25] MEDS ORDERED: NORCO 10/325 PO ONE (04:50)
[2016-09-25] MEDS ORDERED: VALIUM PO ONE (04:50)
[2016-09-25 06:06] VITALS: BP 133/77
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
--- NOTE | 2016-09-25 07:16 | XRay Report ---
FINAL REPORT EXAM: XR ELBOW 3 RT HISTORY: right elbow pain TECHNIQUE: Right elbow three views PRIORS: None. FINDINGS: The bones are osteopenic. The patient is status post internal fixation of distal humerus and proximal ulna. Hardware obscures some of the osseous structures. There is no acute fracture or dislocation seen. IMPRESSION: Status post internal fixation. No acute fracture dislocation seen.
--- NOTE | 2016-09-25 07:30 | XRay Report ---
FINAL REPORT EXAM: XR SHOULDER 2 RT HISTORY: injury TECHNIQUE: Three views of the right shoulder PRIORS: None. FINDINGS: There is no evidence of acute fracture. There is no evidence of joint dislocation. There is no significant focal osseous lesions seen. IMPRESSION: There is no acute abnormality identified.
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
== END 2016-09-25 08:48 | disposition home or self-care (01) ==
LOC: ED 03:53
DX: M25.521 Pain in right elbow (principal); I10 Essential (primary) hypertension; K21.9 Gastro-esophageal reflux disease without esophagitis; J45.909 Unspecified asthma, uncomplicated; I50.9 Heart failure, unspecified; J44.9 Chronic obstructive pulmonary disease, unspecified; F17.200 Nicotine dependence, unspecified, uncomplicated; Z79.82 Long term (current) use of aspirin; Z88.0 Allergy status to penicillin; Z88.2 Allergy status to sulfonamides; Z88.6 Allergy status to analgesic agent; Z88.8 Allergy status to other drugs, medicaments and biological substances

== ENCOUNTER 2018-02-20 19:46 | Emergency (ER) | payer MEDICAID ==
[2018-02-20] MEDS ORDERED: HEPARIN 10,000 UNITS/10 ML IV ONE (20:20)
[2018-02-20] MEDS ORDERED: SUBLIMAZE IV ONE (20:20)
[2018-02-20] MEDS ORDERED: NITROSTAT SL PRN (20:20)
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
[2018-02-20] MEDS ORDERED: TRIDIL DRIP 50MG/250ML 50 MG/250 ML BOTTLE IV SCH (21:00)
[2018-02-20] MEDS ORDERED: HEPARIN/ 0.45% NACL-25,000 UNIT/500 ML 25,000 UNIT/500 ML BAG IV SCH (21:00)
[2018-02-20 21:02] LABS: BUN/Creatinine Ratio 16; Blood Urea Nitrogen 13 mg/dL (7-17); Calcium 8.7 mg/dL (8.4-10.2); Hemolysis Index 211
--- NOTE | 2018-02-20 21:19 | XRay Report ---
FINAL REPORT EXAM: XR CHEST 1V AP HISTORY: cp TECHNIQUE: Frontal portable view of the chest Comparison: None FINDINGS: There is prominence of the interstitial markings in both lungs, acute versus chronic. There is the appearance of slightly irregularly shaped increased density in the right upper lung field. Possible pleural plaque formation. However, parenchymal abnormality cannot entirely be excluded. The cardiac silhouette is enlarged. There is prominence of the pulmonary venous vasculature suggestive of pulmonary venous congestion. The thoracic aorta is unremarkable. The bony structures are notable for sequela of previous distal left clavicle fracture with the appearance of a nonunion or fibrous union. There are multiple right-sided rib deformities suggestive of sequela previous fracture. IMPRESSION: 1. Enlarged cardiac silhouette with evidence of pulmonary venous congestion. 2. Prominence of the interstitial markings in both lungs, acute versus chronic. In the proper clinical setting interstitial edema would need to be considered. 3. Irregularly shaped focus of increased density right upper lung field. Pleural plaque formation versus parenchymal abnormality. A pulmonary nodule cannot be excluded in this region. 4. Sequela of previous left clavicle fracture and multiple right-sided rib fractures. Comparison with previous imaging studies or CT chest may be helpful for further evaluation.
[2018-02-20 21:34] LABS: Hematocrit 34.2 % (30.3-42.9); Mean Corpuscular HGB Conc 35 % (30-34); Mean Corpuscular Hemoglobin 33 pg (28-32); Mean Corpuscular Volume 95 fl (79-97); Red Cell Distribution Width 15.1 % (13.2-15.2)
[2018-02-20 21:39] LABS: INR 0.94 (0.87-1.13)
[2018-02-20 21:40] LABS: Partial Thromboplastin Time 37.1 Sec. (24.2-36.6)
[2018-02-20] MEDS ORDERED: KIONEX PO ONE (22:04)
[2018-02-20 22:55] LABS: Basophils % (Manual) 0 % (0.0-1.8); Total Cells Counted 100
[2018-02-20 22:57] LABS: Ovalocytes Few
[2018-02-20 22:58] LABS: Platelet Estimate Consistent w Auto
[2018-02-20 22:59] LABS: Platelet Count 148 K/mm3 (140-440)
[2018-02-20] MEDS ORDERED: DILAUDID IV PRN (23:31)
[2018-02-21 02:43] VITALS: BP 150/96
[2018-02-21] MEDS ORDERED: ASPIRIN PO SCH (10:00)
== END 2018-02-21 02:45 | disposition left against medical advice (07) ==
LOC: ED 19:46 → UNDOADMIN 23:36 → CC1 23:36 → ED 02-21 02:45 → CC1 02-21 02:45 → UNDODISIN 02-21 03:00
DX: I20.0 Unstable angina (principal); I11.0 Hypertensive heart disease with heart failure; K21.9 Gastro-esophageal reflux disease without esophagitis; N17.9 Acute kidney failure, unspecified; J44.9 Chronic obstructive pulmonary disease, unspecified; F17.200 Nicotine dependence, unspecified, uncomplicated; F41.9 Anxiety disorder, unspecified; E78.00 Pure hypercholesterolemia, unspecified; Z90.49 Acquired absence of other specified parts of digestive tract; Z98.51 Tubal ligation status; Z95.1 Presence of aortocoronary bypass graft; Z79.82 Long term (current) use of aspirin; Z88.0 Allergy status to penicillin; Z88.2 Allergy status to sulfonamides; Z88.5 Allergy status to narcotic agent; Z88.8 Allergy status to other drugs, medicaments and biological substances
CPT/HCPCS: 36415; 71045; 80048; 84484; 85007; 85025; 85610; 85730; 93005; 93010; 96365; 96366; 96375; 96376; 99291; J1170; J1644; J3010